=== PATIENT | female | born 1965 | race Caucasian/White ===

== ENCOUNTER 2022-03-12 14:34 | Emergency (ER) | payer OTHER, SELFPAY ==
--- NOTE | ~2022-03-12 | XR_ITS ---
EXAMINATION: XR shoulder LT min 2V DATE: 03/12/2022 15:23 INDICATION: Left shoulder injury. TECHNIQUE: 4 views of left shoulder were obtained. COMPARISON: None. FINDINGS: Bone alignment is normal. No fracture. The glenohumeral joint is normal. There is mild acro mioclavicular joint osteoarthritis. A left-sided pacer is noted. IMPRESSION: 1. Mild acromioclavicular joint osteoarthritis. Reviewed, dictated and finalized at location A.
[2022-03-12 14:42] VITALS: BP 139/76; PULSE 63; RESP 18; TEMP 36.6; O2SAT 98
--- NOTE | 2022-03-12 16:46 | ED.UPPEXIN ---
HPI - Extremity Injury (Upper) General Chief Complaint: Extremity Injury, Upper Stated Complaint: fall/ left shoulder Time Seen by Provider: 03/12/22 16:21 Source: patient Mode of arrival: ambulatory History of Present Illness HPI narrative: 56-year-old female presents today with complaints of left shoulder pain after falling at work today. Patient states she tripped landed into the wall on her side and then fell onto her knees. Patient with bruising to left armpit and right knee. Patient also states she hit her chin but no bruising apparent there. Patient denies any knee pain at current time. At time of accident patient with limited mobility to left shoulder. Related Data Allergies Allergy/AdvReac Type Severity Reaction Status Date / Time amoxicillin Allergy Other Verified 03/12/22 16:05 Review of Systems Review of Systems: CONSTITUTIONAL: Denies fever, chills, or sweats. EYES: Denies visual changes, redness, or discharge. ENT: Denies rhinorrhea, congestion, sore throat, or otalgia. CARDIOVASCULAR: Denies chest pain, palpitations, or edema. RESPIRATORY: Denies cough or dyspnea. GASTROINTESTINAL: Denies abdominal pain, nausea, vomiting, or diarrhea. GENITOURINARY: Denies dysuria or hematuria. SKIN: Denies rash or itching. MUSCULOSKELETAL: Left shoulder pain. Bruising to right knee from fall. Denies back pain, joint pain, or myalgia. NEUROLOGIC: Denies headache, numbness, dizziness, or weakness. PSYCHIATRIC: Denies anxiety or depression. Exam Narrative: GENERAL: Well-appearing, well-nourished, and in no acute distress. HEAD: Normocephalic, atraumatic. EYES: PERRLA and EOMI. ENT: Nares clear, no rhinorrhea or epistaxis. Mucous membranes moist. Oropharynx without tonsillar hypertrophy exudate or other lesions. Bilateral TMs pearly alva nonbulging NECK: Supple. No adenopathy or masses. No carotid bruits or JVD CHEST: Clear to auscultation. No respiratory distress. No wheezes rales or rhonchi HEART: Regular rate and rhythm. No murmur heard. Normal peripheral pulses. ABDOMEN: Soft, nontender, nondistended, normal active bowel sounds. EXTREMITIES: Ecchymosis to left shoulder. No deformity noted. Tenderness on palpation. Full range of motion. Bruising to right knee. Full range of motion. SKIN: Warm, dry, no rash. NEURO: No focal deficits. Alert and oriented x3. PSYCH: Normal mood and affect. Course Vital Signs Vital signs: Vital Signs Temperature 36.6 C 03/12/22 14:42 Pulse Rate 63 03/12/22 14:42 Respiratory Rate 18 03/12/22 14:42 Blood Pressure 139/76 03/12/22 14:42 Pulse Oximetry 98 03/12/22 14:42 Temperature 36.6 C 03/12/22 14:42 Pulse Rate 63 03/12/22 14:42 Respiratory Rate 18 03/12/22 14:42 Blood Pressure 139/76 03/12/22 14:42 Pulse Oximetry 98 03/12/22 14:42 MDM - Extremity Injury (Upper) MDM Narrative Medical decision making narrative: 56-year-old female HPI as noted. X-ray shows no acute fracture. Patient with full range of motion to the left shoulder and no other complaints. Suspect shoulder strain. Will discharge home plan follow-up with Ortho if things do not improve. Differential Diagnosis Differential diagnosis: Likely dislocation of shoulder and other (Proximal humerus fracture, shoulder pain, rotator cuff tear) Imaging Data Attestation: I personally reviewed and interpreted this imaging study as follows: Radiologist's impression: Impressions Shoulder X-Ray 03/12/22 15:25 IMPRESSION: 1. Mild acromioclavicular joint osteoarthritis. Discharge Plan Discharge Clinical Impression: Acute pain of left shoulder due to trauma Fall Qualifiers: Encounter type: initial encounter Qualified Code(s): W19.XXXA - Unspecified fall, initial encounter Patient Disposition: Home, Self-Care Condition: Stable Instructions: Antibiotic Form, Shoulder Pain (ED) Additional Instructions: May use Tylenol as needed for pain. Make sure to follow-up w
== END 2022-03-12 17:15 | disposition home or self-care (01) ==
LOC: ANHED 16:57
PROVIDERS: Emergency Provider Nurse Practitioner Family
DX: S49.92XA Unspecified injury of left shoulder and upper arm, initial encounter (principal); M19.012 Primary osteoarthritis, left shoulder; W01.198A Fall on same level from slipping, tripping and stumbling with subsequent striking against other object, initial encounter
CPT/HCPCS: 73030; 99283

== ENCOUNTER 2024-12-05 09:08 | Observation (INO) | payer OTHER, SELFPAY ==
[2024-12-05] VITALS (14 sets, daily range): BP systolic 92–129; BP diastolic 43–74; PULSE 68–96; RESP 17–20; TEMP 36.9–37.4; O2SAT 93–100; BMI 37.7
--- NOTE | ~2024-12-05 | US_ITS ---
EXAM: ABDOMEN ULTRASOUND HISTORY: Leukopenia COMPARISON: None FINDINGS: LIVER: The liver is unremarkable in echogenicity and size measuring 17cm in longitudinal dimension. The portal vein is patent demonstrating hepatopedal flow. GALLBLADDER: No stones are identified within the gallbladder. No gallbladder wall thickening or pericholecystic fluid. BILE DUCTS: Common bile duct measures 2.8mm. PANCREAS: Limited evaluation of the pancreas secondary to overlying bowel gas SPLEEN: The spleen is unremarkable in echogenicity and size measuring 10.7cm in longitudinal dimensio n. RIGHT KIDNEY: 10.3 cm. In length. No hydronephrosis or bulky renal calculi. LEFT KIDNEY: 9.7cm in length. No hydronephrosis or renal calculi. Multiple anechoic foci representing cysts for which no further follow-up is needed. VASCULATURE : The abdominal aorta is nonaneurysmal. The IVC is patent. IMPRESSION: Evaluation of the pancreas is limited by overlying bowel gas. No splenomegaly. Otherwise, unremarkable sonographic evaluation of the abdomen, as detailed above. Reviewed, dictated and finalized at location A. T TRIMMER IMPRESSION: Evaluation of the pancreas is limited by overlying bowel gas. No splenomegaly. Otherwise, unremarkable sonographic evaluation of the abdomen, as detailed marcelino eisenberg.
--- NOTE | ~2024-12-05 | XR_ITS ---
EXAMINATION: XR chest 1V portable DATE: 12/05/2024 10:17 INDICATION: Syncope TECHNIQUE: frontal view of the chest was obtained. COMPARISON: None FINDINGS: The lungs are clear with no focal airspace opacities, pulmonary edema, pleural effusion or pneumothor ax. The cardiomediastinal silhouette is normal. Dual lead pacemaker seen with leads projecting over t he expected locations of the right atrium and right ventricle. IMPRESSION: 1. No acute cardiopulmonary disease. Reviewed, dictated and finalized at location A. K MANAGER
--- NOTE | 2024-12-05 09:15 | ECG_ITS ---
Test Date: 2024-12-05 14:20:48 Measurements Intervals [place] Rate: 70 P: 37 MI: 140 QRS: 57 QRSD: 137 T: -16 QT: 415 QTc: 451 Interpretive Statements SINUS RHYTHM RIGHT BUNDLE BRANCH BLOCK ABNORMAL ECG Compared to ECG 12/05/2024 09:14:35 No significant changes Electronically Signed On 12-05-2024 15:40:38 [employer]INCIPAL [employer]CHIT[employer]URAL [employer]M by Francois Lenz D.O.
--- NOTE | 2024-12-05 09:29 | ED.SYNCOPE ---
HPI - Syncope General Chief Complaint: Syncope Stated Complaint: syncopal episode Time Seen by Provider: 12/05/24 09:16 History of Present Illness HPI narrative: Pt presents after having syncopal episode while at work this morning. Pt says was feeling dizzy all morning and went to work and sat down at desk and put head on desk and had a syncopal episode. Pt has history of asystole and has demand pacemakler in place which she says likely fired. Pt feels dizzy but denies CP or palpitations of SOB. 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 Related Data Home Medications ?Medication ?Instructions ?Recorded ?Confirmed ?Last Taken ?Type bupropion HCl 300 mg 24 hr tablet, 300 mg PO DAILY 12/05/24 12/05/24 12/05/24 History extended release metformin 1,000 mg tablet 1,000 mg PO DAILY 12/05/24 12/05/24 12/04/24 History Allergies Allergy/AdvReac Type Severity Reaction Status Date / Time amoxicillin Allergy Other Verified 03/12/22 16:05 Review of Systems Review of Systems: All systems reviewed & are unremarkable except as noted in HPI and below PMFSH Past Medical History Medical History Diabetes Depression Surgical History Surgical History Pacemaker Social History Social History Second hand tobacco smoke exposure: Yes Alcohol intake: never Substance use: never Do You Feel Safe in your Home?: Yes Lack of Transportation: No Lack of Food: Never True Current Housing: I Have Housing Concerned About Future Housing: No Difficulty Paying Gas/Electric Bills: No Difficulty Paying for Meds: No Currently Unemployed: No Education: Don't Know Difficulty w/ Childcare or Family Care: No Spiritual care concerns: No Exam Const: General: healthy appearing, no acute distress and alert Nutritional Appearance: well nourished Orientation/consciousness: patient oriented x3 Limitations: no limitations Eyes: Pupils: Equal, round and reactive pupils present EOM: EOMs intact bilaterally Resp: Effort & Inspection: normal respiratory effort Auscultation: clear to auscultation bilaterally Cardio: Rate: regular rate Rhythm: regular rhythm GI: GI Palp: Yes Soft to palpation Auscultation: normal bowel sounds Skin: General skin exam: normal color Rashes: no rashes Neuro: General: patient oriented x3, moves all extremities, no meningeal signs, no focal motor deficits and CN's II-XI intact bilaterally Cranial nerves: Yes Nystagmus not present Speech: normal speech Extrem: General: normal to inspection and no clubbing, cyanosis or edema Psych: Mental Status: mental status grossly normal Affect: normal affect Attitude: cooperative Course Vital Signs Vital signs: Vital Signs Temperature 99.3 F 12/05/24 09:08 Pulse Rate 68 12/05/24 09:08 Respiratory Rate 20 12/05/24 09:08 Blood Pressure 124/74 12/05/24 09:08 Pulse Oximetry 98 12/05/24 09:08 Oxygen Delivery Room Air 12/05/24 09:08 Temperature 99.0 F 12/05/24 16:13 Pulse Rate 84 12/05/24 16:14 Respiratory Rate 18 12/05/24 16:13 Blood Pressure 116/67 12/05/24 16:14 Pulse Oximetry 93 12/05/24 16:13 Oxygen Delivery Room Air 12/05/24 16:00 MDM - Syncope MDM Narrative Medical decision making narrative: Pt presents after having syncopal episode. Pt has pacemaker for asystole and this has happened before. Pt has cardilogist in [place]. will check labs and monitor and possible transfer to [place]. discussed with Dr Lisa's office and she talked with him. no beds at [facility] so admit here. Discussed with Umm and agrees to admit. Discussed Dr Hastings and she reviewed Pacer interrogation and is not concerned with cardiac etiology for syncope but will consult. Has seen her in past. Lab Data 12/05/24 09:43 12/05/24 09:43 Labs: Lab Results 12/05/24 Range/Units 09:43 WBC 2.5 L (4.5-10.0) K/mm3 RBC 3.39 L (4.2-5.4) M/mm3 Hgb 8.1 L (12.0-15.0) g/dL Hct 27.1 L (37.0-47.0) % MCV 79.9 L (80-100) fl MCH 23.9 L (26-34) pg MCHC 29.9 L (32-36) g/dl RDW 14.5 (11.5-14.5) % Plt Count 242 (150-375) k/mm3 MPV 9.1 (7.4-10.4) fl Immature Gran % (Auto) 0.4 (0-0.5) % Neut % (Auto) 67.4 (45.5-73.1) % Lymph % (Auto) 18.7 (18.3-44.2) % [place] % (Auto) 11.1 H (2.6-8.5) % Eos % (Auto) 1.6 (0-4.4) % Baso % (Auto) 0.8 (0.2-1.2) % Lymph # (Auto) 0.47 L (0.9-3.2) K/mm3 [place] # (Auto) 0.3 (0.1-0.6) K/mm3 Eos # (Auto) 0.0 (0-0.3) K/mm3 Baso # (Auto) 0.0 (0.0-0.1) K/mm3 Abs Immat Gran (auto) 0.01 (0.00-0.031) K/mm3 Absolute Neuts (auto) 1.7 (1.3-6.7) K/mm3 Absolute Nucleated RBC 0.000 (0.0-0.012) K/mm3 Nucleated RBC % 0.0 (0.0-0.2) % Platelet Estimate Adequate (Adequate) Schistocytes None seen PT 13.7 (11.1-14.7) Seconds INR 1.0 APTT 24.3 (22.3-36.8) Seconds Sodium 134 L (137-145) mmol/L Potassium 3.9 (3.4-5.0) mmol/L Chloride 101 (98-107) mmol/L Carbon Dioxide 23 (22-30) mmol/L Anion Gap 10 (4-12) mmol/L BUN 10 (7-17) mg/dL Creatinine 0.96 (0.7-1.0) mg/dL Estim Creat Clear Calc 69 ml/min Estimated GFR 59 (59 - ) Glucose 119 H (65-110) mg/dL Calcium 8.7 (8.4-10.2) mg/dL Magnesium 1.9 (1.6-2.3) mg/dL Total Bilirubin 0.5 (0.2-1.3) mg/dL AST 22 (14-36) U/L ALT 20 (6-35) U/L Alkaline Phosphatase 70 (38-126) U/L Troponin I < 0.012 (0.000-0.034) ng/mL NT-Pro-B Natriuret Pep 313 H (19.9-100) pg/mL Total Protein 6.0 L (6.3-8.2) g/dL Albumin 3.9 (3.5-5.1) g/dL Discharge Plan Discharge Clinical Impression: Syncope Patient Disposition: Still a Patient Condition: Stable
[2024-12-05 09:49] LABS: Basophils Percent Auto 0.8 % (0.2-1.2); Eosinophils Percent Auto 1.6 % (0-4.4); Hematocrit 27.1 % (37.0-47.0); Hemoglobin 8.1 g/dL (12.0-15.0); Immature Granulocyte Absolute 0.01 K/mm3 (0.00-0.031); Immature Granulocyte Percent A 0.4 % (0-0.5); Lymphocytes Absolute Auto 0.47 K/mm3 (0.9-3.2); Lymphocytes Percent Auto 18.7 % (18.3-44.2); Mean Corpuscular HGB Conc 29.9 g/dl (32-36); Mean Corpuscular Hemoglobin 23.9 pg (26-34); Mean Corpuscular Volume 79.9 fl (80-100); Mean Platelet Volume 9.1 fl (7.4-10.4); Monocytes Absolute Auto 0.3 K/mm3 (0.1-0.6); Monocytes Percent Auto 11.1 % (2.6-8.5); Neutrophils Absolute Auto 1.7 K/mm3 (1.3-6.7); Neutrophils Percent Auto 67.4 % (45.5-73.1); Platelet Count Result 242 k/mm3 (150-375); Red Blood Count 3.39 M/mm3 (4.2-5.4); Red Cell Distribution Width 14.5 % (11.5-14.5); White Blood Count 2.5 K/mm3 (4.5-10.0)
[2024-12-05 10:00] LABS: Alanine Aminotransferase 20 U/L (6-35); Albumin Level 3.9 g/dL (3.5-5.1); Alkaline Phosphatase 70 U/L (38-126); Anion Gap 10 mmol/L (4-12); Aspartate Amino Transferase 22 U/L (14-36); Bilirubin,Total 0.5 mg/dL (0.2-1.3); Blood Urea Nitrogen 10 mg/dL (7-17); Calcium 8.7 mg/dL (8.4-10.2); Carbon Dioxide 23 mmol/L (22-30); Chloride 101 mmol/L (98-107); Estimated CRCL calculation 69 ml/min; Estimated Glomerular Filt Rate 59; Glucose 119 mg/dL (65-110); Magnesium 1.9 mg/dL (1.6-2.3); Potassium 3.9 mmol/L (3.4-5.0); Sodium 134 mmol/L (137-145)
[2024-12-05 10:02] LABS: Prothrombin Time 13.7 Seconds (11.1-14.7)
[2024-12-05 10:03] LABS: Partial Thromboplastin Time 24.3 Seconds (22.3-36.8)
[2024-12-05 10:07] LABS: Platelet Estimate Adequate (Adequate)
[2024-12-05 10:08] LABS: Schistocytes None Seen
[2024-12-05 10:11] LABS: NT Pro B Type Natriuretic Pept 313 pg/mL (19.9-100); Troponin I < 0.012 ng/mL (0.000-0.034)
[2024-12-05] MEDS: SODIUM CHLORIDE 0.9% IV 1,000 ML 999 ML IV CONT (10:13)
--- NOTE | 2024-12-05 13:59 | ECG_ITS ---
Test Date: 2024-12-05 09:14:35 Measurements Intervals [place] Rate: 68 P: 27 NC: 143 QRS: 44 QRSD: 142 T: -6 QT: 420 QTc: 447 Interpretive Statements SINUS RHYTHM RIGHT BUNDLE BRANCH BLOCK BASELINE WANDER- I, II, III, V3-V6 ABNORMAL ECG No previous ECG available for comparison Electronically Signed On 12-05-2024 14:06:22 SECURITY COMPLIANCE SPECIALIST by Francois Lenz D.O.
[2024-12-05 14:38] LABS: Troponin I < 0.012 ng/mL (0.000-0.034)
--- NOTE | 2024-12-05 15:24 | ADMGEN ---
This patient, Janie Griffin, was admitted to IMU Room 202-01. Patient/family oriented to hospital policies and general routines including ID bracelet, bed and alarms, visiting hours, pain management, procedures, bathroom and other care routines, personal items, smoking policy, room service/diet, and visiting hours. Information on how to activate the Rapid Response Team has been discussed. Patient/Family are encouraged to report perceived risks to care and to ask questions if they do not understand what they are told or what they should do.
--- NOTE | 2024-12-05 16:00 | P.HP_ITS ---
H&P: HPI History of Present Illness Date/Time: 12/05/24 16:00 Chief Complaint: Syncope Narrative: 59-year-old female with S/p Medtronic dual chamber permanent pacemaker presents the hospital with complaints of syncope and dizziness. Her butt trimmer is in [place], unable to transfer patient to hospital where her butt trimmer has privileges due to no beds being available. Patient states that she has been near passing out since she was about 13. She states that is the reason why she got a pacemaker. However the symptoms have not improved with the pacemaker. She states that she does not lose consciousness however she gets extremely dizzy with the room spinning, she states that she will place her head down and relaxes much as possible but she does not lose hearing. Patient has leukopenia at 2.5, anemia at 8.1, BNP of 313. Chest x-ray with no acute cardiopulmonary process. EKG shows sinus rhythm with right bundle-branch block. Cardiology was consulted for evaluation and pacemaker interrogation. Review of Systems Review of Systems: 12 systems were reviewed and are negativ e except for as per HPI. [facility] Past Medical History Medical History (Updated 12/05/24 @ 23:29 by Umm Bains APRN) PCOS (polycystic ovarian syndrome) Depression Surgical History Surgical History Pacemaker Social History Social History Second hand tobacco smoke exposure: Yes Alcohol intake: never Substance use: never Do You Feel Safe in your Home?: Yes Lack of Transportation: No Lack of Food: Never True Current Housing: I Have Housing Concerned About Future Housing: No Difficulty Paying Gas/Electric Bills: No Difficulty Paying for Meds: No Currently Unemployed: No Education: Don't Know Difficulty w/ Childcare or Family Care: No Spiritual care concerns: No Meds Home Medications and Allergies Home Medications ?Medication ?Instructions ?Recorded ?Confirmed ?Type bupropion HCl 300 mg 24 hr tablet, 300 mg PO DAILY 12/05/24 12/05/24 History extended release metformin 1,000 mg tablet 1,000 mg PO DAILY 12/05/24 12/05/24 History Allergies Allergy/AdvReac Type Severity Reaction Status Date / Time amoxicillin Allergy Other Verified 03/12/22 16:05 Vital Signs Vital Signs - 24 hr 12/05/24 09:08 12/05/24 09:53 12/05/24 11:56 Temperature 99.3 F Pulse Rate 68 71 71 Respiratory Rate 20 19 Blood Pressure 124/74 99/49 L Pulse Oximetry 98 96 Oxygen Delivery Room Air 12/05/24 12:06 12/05/24 13:05 12/05/24 15:30 Temperature 98.5 F Pulse Rate 70 68 72 Respiratory Rate 20 20 18 Blood Pressure 117/68 129/72 122/69 Pulse Oximetry 94 94 100 Oxygen Delivery Exam Narrative: General: well appearing, appears stated age. HEENT: normocephalic, atraumatic. Mucous membranes moist. EOMI, PERRLA, bilateral sclera anicteric, no conjunctival injection. Neck supple without JVD, lymphadenopathy, or bruit. Respiratory: clear to ascultation bilaterally. No rales/rhonic/wheezes. Cardiovascular: Regular rate and rhythm, normal S1-S2 upon ascultation. No murmu rs, rubs, or clicks. PMI is nondisplaced, capillary refill less than 3 second. Abdomen: Soft, round, no pulsatile masses, nondistended and nontender. No rebound, no guarding. No CVA tenderness, no hepatosplenomegaly. Bowel sounds present to all four quadrants. No high pitch or tinkling sounds, resonant to percussion. Extremities: No cyanosis, clubbing, or edema present. Pulses are palpable 2/2. Active ROM to all four extremities. Neuro: Alert and orientated x 4. PERRLA. Cranial nerves 2-12 intact without focal deficit. Skin: Warm, dry, and intact, without rash, erythema, or lesion. Psych: pleasant, cooperative, normal speech, normal affect, no hallucinations, no dysarthia H&P: Results Labs Labs: Short CBC 12/05/24 Range/Units 09:43 WBC 2.5 L (4.5-10.0) K/mm3 Hgb 8.1 L (12.0-15.0) g/dL Hct 27.1 L (37.0-47.0) % Plt Count 242 (150-375) k/mm3 [facility] 12/05/24 09:43 Sodium 134 L Potassium 3.9 Chloride 101 Carbon Dioxide 23 BUN 10 Creatinine 0.96 Glucose 119 H Calcium 8.7 Cardiac Enzymes 12/05/24 12/05/24 Range/Units 09:43 14:12 Troponin I < 0.012 < 0.012 (0.000-0.034) ng/mL Liver Function 12/05/24 Range/Units 09:43 Total Bilirubin 0.5 (0.2-1.3) mg/dL AST 22 (14-36) U/L ALT 20 (6-35) U/L Alkaline Phosphatase 70 (38-126) U/L Albumin 3.9 (3.5-5.1) g/dL Assessment and Plan Assessment and plan (1) Near syncope: Code(s): R55 - Syncope and collapse Status: Acute Assessment and Plan: Syncopal workup life skills educator Orthostatic vital signs Echocardiogram If no cause of episodes sound patient would benefit from seeing ENT for possible inner ear disease (2) Pacemaker complications: Code(s): T82.9XXA - Unspecified complication of cardiac and vascular prosthetic device, implant and graft, initial encounter Status: Acute Assessment and Plan: Cardiology consulted Cardiology reviewed pacemaker interrogation of nonsustained V-tach and decided that it was 6 beats of SVT which patient has had past. patient interrogation was otherwise normal Orthostatic vital signs Anemia workup Echocardiogram pending Patient to follow up with her primary butt trimmer after hospital discharge (Dr. Lisa with [facility]). (3) Iron deficiency anemia: Code(s): D50.9 - Iron deficiency anemia, unspecified Status: Acute Assessment and Plan: Patient states she recently had blood work and her provider did not mention showed anemia IV iron followed by oral (4) Cough: Code(s): R05.9 - Cough, unspecified Status: Acute Assessment and Plan: COVID, flu, RSV panel negative (5) Depression: Code(s): F32.A - Depression, unspecified Status: Acute Assessment and Plan: Continue home med (6) PCOS (polycystic ovarian syndrome): Code(s): E28.2 - Polycystic ovarian syndrome Status: Acute Quality VTE Prophylaxis VTE prophylaxis: mechanical ordered If No VTE Prophylaxis Answer both mechanical and pharmacologic: Reason no pharmacologic proph: low risk/not indicated Hospitalist MIPS Advance Care Plan I have confirmed that the patient's Advanced Care Plan is present, code status is documented, or surrogate decision maker is listed in patient medical record.: Yes Medication Reconciliation I have utilized all available resources to obtain, update and review the patients current medications (includes all prescriptions, OTC, herbals, cannabis, and nutritional supplements).: Yes
--- NOTE | 2024-12-05 16:05 | P.CONCA_ITS ---
Assessment and Plan Assessment and plan (1) Near syncope: Code(s): R55 - Syncope and collapse Status: Acute Plan 1. Near syncope 2. Cough 3. Anemia 4. S/p Medtronic dual chamber permanent pacemaker PLAN: -Device interrogation unremarkable. -Check orthostatic vital signs. -Given cough and recent exposure to Influenza, recommend to check for Influenza/COVID/RSV. -Hgb is 8.1. No previous baseline for comparison, unclear if acute or chronic. Workup and management as per Hospitalist. -Will obtain echocardiogram as we do not have one in our system. If echocardiogram without significant abnormality, then no further cardiac workup anticipated. -Patient to follow up with her primary logistics tech after hospital discharge (Dr. Lisa with [facility]). History of Present Illness History of Present Illness Consult date/time: 12/05/24 16:05 Requesting physician: Radha Noland III, DO Consult reason: Other (Syncope) Reason For Visit: syncope Narrative: Janie is a 59 year old female with Medtronic dual chamber permanent pacemaker who presented after a near syncopal event. Janie states she started coughing yesterday. Woke up this morning around 4AM, felt dizzy. Went to work where she continued to feel dizzy. Was sitting at work and around 9AM, she slumped over and became non-responsive. She did not lose consciousness -- states she could hear other people talking to her during this event. No other associated symptoms. In the ED, EKG shows sinus rhythm, right bundle branch block. Device was interrogated which shows normal functioning pacemaker. Had 6 episodes marked as NSVT, however, upon personal interpretation of the strips, these were very brief episodes of SVT (which patient has had before upon review of her old device interrogations); last episode was /. Overall, device interrogation unremarkable. Patient admitted for further workup. Workup shows Hgb of 8.1. Troponins are negative x 2. NT pro BNP elevated at 313. CXR negative. Review of Systems 2 Review of Systems: All systems reviewed & are unremarkable except as noted in HPI and below (HPI) [facility] Social History Social History Alcohol intake: never Substance use: never Do You Feel Safe in your Home?: Yes Lack of Transportation: No Lack of Food: Never True Current Housing: I Have Housing Concerned About Future Housing: No Difficulty Paying Gas/Electric Bills: No Difficulty Paying for Meds: No Currently Unemployed: No Education: Don't Know Difficulty w/ Childcare or Family Care: No Spiritual care concerns: No Meds Home Medications and Allergies Allergies Allergy/AdvReac Type Severity Reaction Status Date / Time amoxicillin Allergy Other Verified 03/12/22 16:05 Vital Signs Vital Signs - 24 hr 12/05/24 09:08 12/05/24 09:53 12/05/24 11:56 Temperature 37.4 C Pulse Rate 68 71 71 Respiratory Rate 20 19 Blood Pressure 124/74 99/49 L Pulse Oximetry 98 96 Oxygen Delivery Room Air 12/05/24 12:06 12/05/24 13:05 12/05/24 15:30 Temperature 36.9 C Pulse Rate 70 68 72 Respiratory Rate 20 20 18 Blood Pressure 117/68 129/72 122/69 Pulse Oximetry 94 94 100 Oxygen Delivery Exam 2 Const: General: no acute distress HENMT: Mouth: Yes moist mucous membranes Eyes: General: appearance normal, both eyes and all related structures S clera: sclerae normal Resp: Effort & Inspection: normal respiratory effort Auscultation: clear to auscultation bilaterally Cardio: Rate: regular rate Rhythm: regular rhythm Heart sounds: no murmurs Skin: General skin exam: normal color Neuro: Speech: normal speech Psych: Mental Status: mental status grossly normal Affect: normal affect Results Labs and Meds 12/05/24 09:43 12/05/24 09:43 Lab results: Cardiac Enzymes 12/05/24 12/05/24 Range/Units 09:43 14:12 AST 22 (14-36) U/L Troponin I < 0.012 < 0.012 (0.000-0.034) ng/mL Coagulation 12/05/24 Range/Units 09:43 PT 13.7 (11.1-14.7) Seconds APTT 24.3 (22.3-36.8) Seconds CBC 12/05/24 Range/Units 09:43 WBC 2.5 L (4.5-10.0) K/mm3 RBC 3.39 L (4.2-5.4) M/mm3 Hgb 8.1 L (12.0-15.0) g/dL Hct 27.1 L (37.0-47.0) % Plt Count 242 (150-375) k/mm3 Lymph # (Auto) 0.47 L (0.9-3.2) K/mm3 [place] # (Auto) 0.3 (0.1-0.6) K/mm3 Eos # (Auto) 0.0 (0-0.3) K/mm3 Baso # (Auto) 0.0 (0.0-0.1) K/mm3 Comprehensive Metabolic Panel 12/05/24 Range/Units 09:43 Sodium 134 L (137-145) mmol/L Potassium 3.9 (3.4-5.0) mmol/L Chloride 101 (98-107) mmol/L Carbon Dioxide 23 (22-30) mmol/L BUN 10 (7-17) mg/dL Creatinine 0.96 (0.7-1.0) mg/dL Glucose 119 H (65-110) mg/dL Calcium 8.7 (8.4-10.2) mg/dL AST 22 (14-36) U/L ALT 20 (6-35) U/L Alkaline Phosphatase 70 (38-126) U/L Total Protein 6.0 L (6.3-8.2) g/dL Albumin 3.9 (3.5-5.1) g/dL Intake and Output 12/05/24 12/05/24 12/05/24 07:59 15:59 23:59 Intake Total 1000 Balance 1000 Intake: IV 1000 Sodium Chloride 0.9% IV 1,000 1000 ml @ 999 mls/hr IV CONT .Q1H1M STA Rx#:[id number] Patient Weight 12/05/24 23:59 Weight 109.2 kg
[2024-12-05 16:57] LABS: Immature Reticulocyte Fraction 14.4 % (3.0-15.9); Reticulocyte Hemoglobin Conten 22.9 pg (28.2-36.6); Reticulocyte Percent 1.22 % (0.7-4.3); Reticulocytes Absolute 0.04 10^6/uL (0.02-0.10)
[2024-12-05 17:01] LABS: Influenza A QL RT-PCR Negative (Negative); Influenza B QL RT-PCR Negative (Negative); RSV RNA, RT-PCR Negative (Negative); SARS-CoV-2 RNA PCR Negative (Negative)
[2024-12-05 17:08] LABS: Prothrombin Time 13.8 Seconds (11.1-14.7)
[2024-12-05 17:09] LABS: Partial Thromboplastin Time 25.6 Seconds (22.3-36.8)
[2024-12-05 17:27] LABS: Magnesium 2.1 mg/dL (1.6-2.3); Phosphorus 3.6 mg/dL (2.5-4.5)
[2024-12-05 17:34] LABS: Transferrin 294 mg/dL (206-381)
[2024-12-05 17:39] LABS: Iron 32 ug/dL (37-170)
[2024-12-05 17:48] LABS: Percent Iron Saturation 8 % (20-50)
[2024-12-05 18:09] LABS: Thyroid Stimulating Hormone Reflex 0.494 uIU/mL (0.465-4.68)
[2024-12-05 18:13] LABS: Ferritin 6.32 ng/mL (11.1-264)
[2024-12-05 18:35] LABS: Folic Acid > 20.0 ng/mL (2.76->20)
[2024-12-05 18:45] LABS: Free T4 Free Thyroxine 1.05 ng/dL (0.78-2.19)
[2024-12-05 19:28] LABS: Add Urine Microscopic? NO; Appearance Urine Clear (Clear); Bilirubin Urine Negative (Negative); Blood Urine Negative (Negative); Color Urine Yellow (Yellow); Glucose Urine UA Negative (Negative); Ketones Urine Negative (Negative); Leukocyte Esterase Ur Negative LEU/UL (Negative); Nitrate Urine Negative (Negative); Protein Urine Negative (Negative); Specific Grav Ur 1.006 (1.001-1.035); Urobilinogen Urine 0.2 mg/dL (<2.0); pH Urine 6.5 (5.0-9.0)
[2024-12-05 20:55] LABS: Troponin I < 0.012 ng/mL (0.000-0.034)
[2024-12-05] MEDS: IRON SUCROSE COMPLEX 200 MG in SODIUM CHLORIDE 0.9% IV 100 ML 220 MG IVPB (22:27)
[2024-12-06] VITALS (10 sets, daily range): BP systolic 95–109; BP diastolic 48–66; PULSE 65–77; RESP 16–20; TEMP 36.7–37.2; O2SAT 92–96
--- NOTE | 2024-12-06 | ECHO_ITS ---
Patient Info Name: Janie Ventura Elias Age: 59 years : 1965 Gender: Female Ht: 67 in Wt: 244 lbs BSA: 2.34 m2 HR: 80 bpm BP: 107 / 59 mmHg Heart Rhythm: Sinus Rhythm Technical Quality: Good Exam Date: 12/06/2024 9:54 AM Exam Location: Echo Lab Exam Room: [facility] Patient Status: Inpatient Admit Date: 12/05/2024 Staff Ordering Physician: Antonio Hastings MD (franny/abrahan) Meat Trimmer: Rose Sharma RDCS Attending Provider: Marie Wesley MD Referring Physician: Venkata CORNEJO; Exam Type: CA echo doppler color flow Study Info Indications - A fib Complete two-dimensional, color flow and Doppler transthoracic echocardiogram is performed. Summary 1. Left ventricular chamber dimension is normal. 2. Left ventricular systolic function is normal, estimated at 60-65%. 3. The left ventricular diastolic function is grade I diastolic dysfunction. 4. Right ventricular systolic function is normal. 5. Left atrial chamber dimension is mildly enlarged. 6. There is mild mitral valve regurgitation. 7. There is mild tricuspid valve regurgitation. Left Ventricle Left ventricular chamber dimension is normal. Left ventricular systolic function is normal, estimated at 60-65%. There is no increased left ventricular wall thickness. The left ventricular diastolic function is grade I diastolic dysfunction. Right Ventricle Linear artifact in right ventricle suggestive of catheter(s), pacemaker lead(s), or ICD lead(s). Right ventricular chamber dimension is normal. Right ventricular systolic function is normal. Left Atria Left atrial chamber dimension is mildly enlarged. Right Atria Linear artifact in the right atrium suggestive of catheter(s), pacemaker lead(s), or ICD lead(s). Right atrial chamber dimension is normal. Atrial Septum Intact interatrial septum visualized by color flow imaging. Aortic Valve The aortic valve is trileaflet. There is no aortic valve stenosis. There is no aortic valve regurgitation. Pulmonic Valve The pulmonic valve is not well visualized. There is no pulmonic regurgitation. Mitral Valve There is mild mitral valve regurgitation. Tricuspid Valve There is mild tricuspid valve regurgitation. Pericardium/Pleural There is no pericardial effusion. Inferior Vena Cava Normal inferior vena cava with >50% collapse upon inspiration consistent with normal right atrial pressure, 3 mmHg. Aorta The aortic root size at the sinus of Valsalva is normal. Left Ventricular Outflow Tract Name Value Normal LVOT 2D LVOT Diameter 2.3 cm LVOT Doppler LVOT Peak Gradient 7 mmHg LVOT Mean Gradient 4 mmHg LVOT VTI 29 cm LVOT VTI/AV VTI Ratio 0.8 LVOT Stroke Volume 120 ml LVOT CO 6.6 l/min LVOT CI 2.8 l/min/m2 Pulmonic Valve Name Value Normal PV Doppler PV Peak Gradient 4 mmHg PV Regurgitation Doppler DC Peak End Diastolic Velocity 103 cm/s Mitral Valve Name Value Normal MV Doppler MV Peak Gradient 2 mmHg MV Mean Gradient 1 mmHg MV Decel [place] 226 cm/s2 MV PHT 95 ms MV Area (PHT) 2.3 cm2 4.0-5.0 MV Area (Cont Eq VTI) 4.4 cm2 MV Diastolic Function MV E Peak Velocity 74 cm/s MV A Peak Velocity 90 cm/s MV E/A 0.8 MV Decel Time 326 ms MV Annular TDI MV E/e' (Septal) 5.7 <=8.0 MV E/e' (Lateral) 5.9 <=8.0 MV E/e' (Average) 5.8 Tricuspid Valve Name Value Normal TV Regurgitation Doppler TR Peak Velocity 257 cm/s TR Peak Gradient 26 mmHg Estimated PAP/RSVP RA Pressure 3 mmHg <=5 PA Systolic Pressure 29 mmHg <36 RV Systolic Pressure 29 mmHg <36 Aortic Valve Name Value Normal AV Doppler AV Peak Velocity 177 cm/s AV Peak Gradient 12 mmHg AV Mean Gradient 7 mmHg AV VTI 37 cm AV Area (Cont Eq VTI) 3.2 cm2 >=3.0 AV Area (Cont Eq Dirk) 3.1 cm2 AV Regurgitation 2D LVOT Area 4.1 cm2 Ventricles Name Value Normal LV Dimensions 2D/MM IVS Diastolic Thickness (2D) 0.8 cm 0.6-1.0 LVID Diastole (2D) 5.6 cm 3.8-5.2 LVID Diastole (MM) 6.0 cm 3.8-5.2 LVIW Diastolic Thickness (2D) 0.8 cm 0.6-0.9 LVID Systole (2D) 4.1 cm 2.2-3.5 LVID Systole (MM) 3.7 cm 2.2-3.5 LVOT Diameter 2.3 cm LV Mass (2D Cubed) 169.98 g 67.00-162.00 LV Mass Index (2D Cubed) 73 g/m2 43-95 Relative Wall Thickness (2D) 0.29 LV Fractional Shortening/Ejection Fraction 2D/MM LV Fractional Shortening (2D) 27 % 27-45 LV Fractional Shortening (MM) 38 % 27-45 LV EF (MM Teicholz) 67 % 54-74 LV EF (2D Teicholz) 52 % 54-74 LV Diastolic Volume (4C MOD) 180 ml LV EF (4C MOD) 61 % LV Diastolic Volume (2C MOD) 165 ml LV EF (2C MOD) 62 % LV Diastolic Volume (BP MOD) 181 ml 46-106 LV Diastolic Volume Index (BP MOD) 77 ml/m2 29-61 LV Systolic Volume (BP MOD) 67 ml 14-42 LV Systolic Volume Index (BP MOD) 29 ml/m2 8-24 LV EF (BP MOD) 63 % 54-74 LV Diastolic Length (4C) 9.5 cm LV Systolic Length (4C) 7.5 cm LV Stroke Volume (4C MOD) 109 ml Atria Name Value Normal LA Dimensions LA Volume (4C A-L) 74 ml LA Volume (BP A-L) 82 ml RA Dimensions RA Area (4C) 16.9 cm2 <=18.0 Report Signatures
[2024-12-06 04:41] LABS: Basophils Percent Auto 0.5 % (0.2-1.2); Eosinophils Percent Auto 1.5 % (0-4.4); Hematocrit 26.2 % (37.0-47.0); Hemoglobin 7.7 g/dL (12.0-15.0); Lymphocytes Absolute Auto 0.84 K/mm3 (0.9-3.2); Lymphocytes Percent Auto 41.4 % (18.3-44.2); Mean Corpuscular HGB Conc 29.4 g/dl (32-36); Mean Corpuscular Hemoglobin 23.5 pg (26-34); Mean Corpuscular Volume 80.1 fl (80-100); Mean Platelet Volume 9.2 fl (7.4-10.4); Monocytes Absolute Auto 0.3 K/mm3 (0.1-0.6); Monocytes Percent Auto 12.8 % (2.6-8.5); Neutrophils Absolute Auto 0.9 K/mm3 (1.3-6.7); Neutrophils Percent Auto 43.8 % (45.5-73.1); Platelet Count Result 225 k/mm3 (150-375); Red Blood Count 3.27 M/mm3 (4.2-5.4); Red Cell Distribution Width 14.5 % (11.5-14.5)
[2024-12-06 04:57] LABS: Anion Gap 9 mmol/L (4-12); Blood Urea Nitrogen 9 mg/dL (7-17); Calcium 8.5 mg/dL (8.4-10.2); Carbon Dioxide 25 mmol/L (22-30); Chloride 105 mmol/L (98-107); Estimated CRCL calculation 67 ml/min; Estimated Glomerular Filt Rate 56; Glucose 88 mg/dL (65-110); Potassium 3.8 mmol/L (3.4-5.0); Sodium 139 mmol/L (137-145)
[2024-12-06 05:51] LABS: Anisocytosis 1+; Hypochromasia 1+; Platelet Estimate Adequate (Adequate); Schistocytes None Seen
[2024-12-06] MEDS: POLYSACCHARIDE IRON COMPLEX 150 MG CAPSULE PO ×2 (08:43→17:20)
[2024-12-06] MEDS: buPROPion HCL XL (24 HR) 150 MG TABCR 300 MG PO (08:43)
[2024-12-06] MEDS: metFORMIN HCL 500 MG TABLET 1000 MG PO (08:43)
[2024-12-06 09:00] LABS: Lactate Dehydrogenase 193 U/L (120-246)
--- NOTE | 2024-12-06 12:12 | P.PNIM_ITS ---
Progress Note: A&P Assessment and Plan (1) Near syncope: Code(s): R55 - Syncope and collapse Status: Acute Assessment and Plan: Syncopal workup color television console monitor Orthostatic vital signs Echocardiogram pending Pacemaker interrogation with no significant arrhythmias. Check orthostatic vitals (2) Pacemaker complications: Code(s): T82.9XXA - Unspecified complication of cardiac and vascular prosthetic device, implant and graft, initial encounter Status: Acute Assessment and Plan: Cardiology consulted Cardiology reviewed pacemaker interrogation of nonsustained V-tach and decided that it was 6 beats of SVT which patient has had past. patient interrogation was otherwise normal Orthostatic vital signs Anemia workup Echocardiogram pending Patient to follow up with her primary core cleaner after hospital discharge (Dr. Lisa with [facility]). (3) Iron deficiency anemia: Code(s): D50.9 - Iron deficiency anemia, unspecified Status: Acute Assessment and Plan: Patient states she recently had blood work and her provider did not mention showed anemia IV iron followed by oral ferritin is low with low iron saturation Family history of hematologic malignancy in her sister. Also has leukopenia. Could be related to iron deficiency However consult Heme-Onc for further evaluation. May need outpatient evaluation Could not find any prior cbc (4) Cough: Code(s): R05.9 - Cough, unspecified Status: Acute Assessment and Plan: COVID, flu, RSV panel negative (5) Depression: Code(s): F32.A - Depression, unspecified Status: Acute Assessment and Plan: Continue home med (6) PCOS (polycystic ovarian syndrome): Code(s): E28.2 - Polycystic ovarian syndrome Status: Acute Subjective Date/time seen: 12/06/24 12:12 Interval history: Feels better. Blood pressure borderline. Having some upper respiratory symptoms. Labs in the past not available particularly cbc check lab [facility] and previous hospital. Denies any abdominal pain nausea vomiting. Review of Systems Review of Systems: All systems reviewed & are unremarkable except as noted in HPI and below Exam Narrative: General: well appearing, appears stated age. HEENT: normocephalic, atraumatic. Mucous membranes moist. Respiratory: clear to ascultation bilaterally. No rales/rhonic/wheezes. Cardiovascular: Regular rate and rhythm, normal S1-S2 upon ascultation. No murmurs, rubs, or clicks. PMI is nondisplaced, capillary refill less than [address] Abdomen: Soft, round, no pulsatile masses, nondistended and nontender. Extremities: No cyanosis, clubbing, or edema present. Pulses are palpable 2/2. Active ROM to all four extremities. Neuro: Alert and orientated x 4. PERRLA. Cranial nerves 2-12 intact without focal deficit. Skin: Warm, dry, and intact, without rash, erythema, or lesion. Psych: pleasant, cooperative, normal speech, normal affect, no hallucinations, no dysarthia Objective Data Vital Signs Vital Signs: Vital Signs - 24 hr 12/05/24 13:05 12/05/24 15:30 12/05/24 16:00 Temperature 98.5 F Pulse Rate 68 72 Respiratory Rate 20 18 Blood Pressure 129/72 122/69 Pulse Oximetry 94 100 93 Oxygen Delivery Room Air 12/05/24 16:00 12/05/24 16:13 12/05/24 16:13 Temperature 99.0 F 99.0 F Pulse Rate 71 73 73 Respiratory Rate 18 18 Blood Pressure 118/67 118/67 Pulse Oximetry 93 93 Oxygen Delivery 12/05/24 16:14 12/05/24 16:14 12/05/24 18:00 Temperature Pulse Rate 96 84 73 Respiratory Rate Blood Pressure 125/73 116/67 Pulse Oximetry Oxygen Delivery 12/05/24 19:39 12/05/24 20:00 12/05/24 20:00 Temperature 98.8 F Pulse Rate 82 77 Respiratory Rate 17 Blood Pressure 109/48 L Pulse Oximetry 95 Oxygen Delivery Room Air 12/05/24 22:00 12/05/24 23:53 12/06/24 00:00 Temperature 99.0 F Pulse Rate 70 72 Respiratory Rate 18 Blood Pressure 92/43 L Pulse Oximetry 95 Oxygen Delivery Room Air 12/06/24 00:00 12/06/24 02:00 12/06/24 04:00 Temperature Pulse Rate 73 73 Respiratory Rate Blood Pressure Pulse Oximetry Oxygen Delivery Room Air 12/06/24 04:00 12/06/24 04:00 12/06/24 06:00 Temperature 98.8 F Pulse Rate 65 67 71 Respiratory Rate 18 Blood Pressure 95/60 L Pulse Oximetry 92 Oxygen Delivery 12/06/24 07:59 12/06/24 10:00 12/06/24 11:22 Temperature 98.5 F 98.1 F Pulse Rate 69 68 67 Respiratory Rate 20 18 Blood Pressure 102/53 L 105/48 L Pulse Oximetry 96 93 Oxygen Delivery 12/06/24 12:00 Temperature Pulse Rate 77 Respiratory Rate Blood Pressure Pulse Oximetry Oxygen Delivery Intake/Output Intake/Output: Intake & Output 12/03/24 12/04/24 12/05/24 12/06/24 23:59 23:59 23:59 23:59 Intake Total 1470 240 Output Total 1001 1000 Balance 469 -760 Meds/Results Medications: Active Medications Generic Name Dose Route Start Last Admin Trade Name Freq PRN Reason Stop Dose Admin Acetaminophen 650 mg 12/05/24 16:30 Acetaminophen 325 Mg Tablet PO Q4H PRN Mild Pain (1-3) or Fever Bupropion HCl 300 mg 12/06/24 09:00 12/06/24 08:43 Bupropion Hcl Xl (24 Hr) 150 Mg Tabcr PO 300 mg DAILY VELMA Administration Fluticasone Propionate 1 spray 12/06/24 09:00 12/06/24 11:06 Fluticasone Propionate 0.05% Na Spr 16 Gm Btl (*Bkc) NASAL Not Given Q12HR VELMA Metformin HCl 1,000 mg 12/06/24 09:00 12/06/24 08:43 Metformin Hcl 500 Mg Tablet PO 1,000 mg DAILY VELMA Administration Perflutren Lipid Microsphere 0 ml 12/05/24 16:14 Perflutren Lipid Microspheres 1.5 Ml Vial Diluted To 10 Ml Total Volume IV PUSH 12/08/24 16:14 ONCE PRN adequate visualization Protocol Polysaccharide Iron Complex 150 mg 12/06/24 08:00 12/06/24 08:43 Polysaccharide Iron Complex 150 Mg Capsule PO 12/07/24 09:00 150 mg BIDWM VELMA Administration Senna/Docusate Sodium 1 tab 12/06/24 21:00 Senna/Docusate Sodium Tablet PO HS [facility] Radiology Results: ITS Impressions Chest X-Ray 12/05/24 10:19 IMPRESSION: 1. No acute cardiopulmonary disease. Labs Labs: Laboratory Results - last 24 hr 12/05/24 12/05/24 12/05/24 14:12 16:20 16:48 WBC RBC Hgb Hct MCV MCH MCHC RDW Plt Count MPV Immature Gran % (Auto) Neut % (Auto) Lymph % (Auto) [place] % (Auto) Eos % (Auto) Baso % (Auto) Lymph # (Auto) [place] # (Auto) Eos # (Auto) Baso # (Auto) Abs Immat Gran (auto) Absolute Neuts (auto) Absolute Nucleated RBC Nucleated RBC % Platelet Estimate Hypochromasia Anisocytosis Schistocytes Absolute Retic 0.04 Percent Retic 1.22 Immature Retic Fraction 14.4 Retic Hgb Content 22.9 L PT 13.8 INR 1.0 APTT 25.6 Sodium Potassium Chloride Carbon Dioxide Anion Gap BUN Creatinine Estim Creat Clear Calc Estimated GFR Glucose Calcium Phosphorus 3.6 Magnesium 2.1 Iron 32 L TIBC 391 % Saturation 8 L Transferrin 294 Ferritin 6.32 L Lactate Dehydrogenase Troponin I < 0.012 Vitamin B12 917.0 Folate > 20.0 H TSH (Reflex) 0.494 Free T4 1.05 Urine Color Urine Appearance Urine pH Ur Specific [place] Urine Protein Urine Glucose (UA) Urine Ketones Ur Blood (Man) Urine Nitrate Urine Bilirubin Urine Urobilinogen Ur Leukocyte Esterase Influenza A (RT-PCR) Negative Influenza B (RT-PCR) Negative RSV (RT-PCR) Negative SARS-CoV-2 RNA (RT-PCR) Negative Blood Type O Positive Antibody Screen Negative 12/05/24 12/05/24 12/06/24 19:20 20:14 03:45 WBC 2.0 L RBC 3.27 L Hgb 7.7 L Hct 26.2 L MCV 80.1 MCH 23.5 L MCHC 29.4 L RDW 14.5 Plt Count 225 MPV 9.2 Immature Gran % (Auto) 0.0 Neut % (Auto) 43.8 L Lymph % (Auto) 41.4 [place] % (Auto) 12.8 H Eos % (Auto) 1.5 Baso % (Auto) 0.5 Lymph # (Auto) 0.84 L [place] # (Auto) 0.3 Eos # (Auto) 0.0 Baso # (Auto) 0.0 Abs Immat Gran (auto) 0.00 Absolute Neuts (auto) 0.9 L Absolute Nucleated RBC 0.000 Nucleated RBC % 0.0 Platelet Estimate Adequate Hypochromasia 1+ Anisocytosis 1+ Schistocytes None seen Absolute Retic Percent Retic Immature Retic Fraction Retic Hgb Content PT INR APTT Sodium 139 Potassium 3.8 Chloride 105 Carbon Dioxide 25 Anion Gap 9 BUN 9 Creatinine 1.01 H Estim Creat Clear Calc 67 Estimated GFR 56 L Glucose 88 Calcium 8.5 Phosphorus Magnesium Iron TIBC % Saturation Transferrin Ferritin Lactate Dehydrogenase 193 Troponin I < 0.012 Vitamin B12 Folate TSH (Reflex) Free T4 Urine Color Yellow Urine Appearance Clear Urine pH 6.5 Ur Specific [place] 1.006 Urine Protein Negative Urine Glucose (UA) Negative Urine Ketones Negative Ur Blood (Man) Negative Urine Nitrate Negative Urine Bilirubin Negative Urine Urobilinogen 0.2 Ur Leukocyte Esterase Negative Influenza A (RT-PCR) Influenza B (RT-PCR) RSV (RT-PCR) SARS-CoV-2 RNA (RT-PCR) Blood Type Antibody Screen
--- NOTE | 2024-12-06 18:46 | WPDONCCN ---
Assessment and Plan Assessment and plan (1) Pancytopenia: Code(s): D61.818 - Other pancytopenia Status: Acute Assessment and Plan: Anemia and leukopenia. Patient is a pleasant 59-year-old female with history of pacemaker placement along with polycystic ovarian syndrome. She came into the hospital with lightheadedness and dizziness and labs showed WBC count of 2.5 with hemoglobin of 8.1. Her platelet count were normal. Other labs showed iron level 32 with iron saturation of 8%. Ferritin was 6.3. She denies any complaint of bleeding. Patient had uterine ablation done in the past. Her last colonoscopy was 3-4 months ago when came back unremarkable. I will continue with the IV iron infusion and will start iron 65 mg twice a day with vitamin-C 500 mg daily on discharge. Based on her response to the therapy will decide about further GI evaluation including endoscopy and capsule enteroscopy as an outpatient. I will also order abdominal ultrasound flow cytometric analysis for leukemia and JUAN due to low WBC count. I have answered all the questions to patient's satisfaction. Follow up as an outpatient. HPI Data of Consult Date/Time: 12/06/24 18:46 Requesting Physician: Marie Wesley MD Primary Care Provider: UNKNOWN,DOCTOR Consult Narrative Narrative: Janie Griffin is a 59 year old female with history of polycystic ovarian syndrome and status post pacemaker placement came into the hospital with complain of lightheadedness and dizziness and syncopal episode. She denies any bleeding including melena hematochezia. Denies any diarrhea and constipation. She denies being a vegetarian. She eats red meat infrequently. She denies any previous stomach surgery. Labs Showed hemoglobin of 8.1. WBC count was 2.5. Iron studies showed iron deficiency anemia. She denies any autoimmune complaints. Patient had colonoscopy done 3-4 months ago came back unremarkable. She never received blood transfusion in the past. Denies any other complaint. Review of Systems Review of Systems: Review of system as per HPI otherwise negative [facility] Past Medical History Medical History (Updated 12/05/24 @ 23:29 by Umm Bains APRN) PCOS (polycystic ovarian syndrome) Depression Surgical History Surgical History Pacemaker Social History Social History Second hand tobacco smoke exposure: Yes Alcohol intake: never Substance use: never Do You Feel Safe in your Home?: Yes Lack of Transportation: No Lack of Food: Never True Current Housing: I Have Housing Concerned About Future Housing: No Difficulty Paying Gas/Electric Bills: No Difficulty Paying for Meds: No Currently Unemployed: No Education: Don't Know Difficulty w/ Childcare or Family Care: No Spiritual care concerns: No Meds Home Medications and Allergies Home Medications ?Medication ?Instructions ?Recorded ?Confirmed ?Type bupropion HCl 300 mg 24 hr tablet, 300 mg PO DAILY 12/05/24 12/05/24 History extended release metformin 1,000 mg tablet 1,000 mg PO DAILY 12/05/24 12/05/24 History Allergies Allergy/AdvReac Type Severity Reaction Status Date / Time amoxicillin Allergy Other Verified 03/12/22 16:05 Vital Signs Vital Signs - 24 hr 12/05/24 19:39 12/05/24 20:00 12/05/24 20:00 Temperature 37.1 C Pulse Rate 82 77 Respiratory Rate 17 Blood Pressure 109/48 L Pulse Oximetry 95 Oxygen Delivery Room Air 12/05/24 22:00 12/05/24 23:53 12/06/24 00:00 Temperature 37.2 C Pulse Rate 70 72 Respiratory Rate 18 Blood Pressure 92/43 L Pulse Oximetry 95 Oxygen Delivery Room Air 12/06/24 00:00 12/06/24 02:00 12/06/24 04:00 Temperature Pulse Rate 73 73 Respiratory Rate Blood Pressure Pulse Oximetry Oxygen Delivery Room Air 12/06/24 04:00 12/06/24 04:00 12/06/24 06:00 Temperature 37.1 C Pulse Rate 65 67 71 Respiratory Rate 18 Blood Pressure 95/60 L Pulse Oximetry 92 Oxygen Delivery 12/06/24 07:59 12/06/24 10:00 12/06/24 11:22 Temperature 36.9 C 36.7 C Pulse Rate 69 68 67 Respiratory Rate 20 18 Blood Pressure 102/53 L 105/48 L Pulse Oximetry 96 93 Oxygen Delivery 12/06/24 12:00 12/06/24 15:53 Temperature 37.2 C Pulse Rate 77 72 Respiratory Rate 18 Blood Pressure 108/61 Pulse Oximetry 95 Oxygen Delivery Exam Narrative: Lungs are clear to auscultation bilaterally Cardiovascular regular rate rhythm no murmurs Abdomen soft nontender nondistended Extremities no edema Results Labs 12/06/24 03:45 12/06/24 03:45 Labs: Short CBC 12/06/24 Range/Units 03:45 WBC 2.0 L (4.5-10.0) K/mm3 Hgb 7.7 L (12.0-15.0) g/dL Hct 26.2 L (37.0-47.0) % Plt Count 225 (150-375) k/mm3 BMP 12/06/24 03:45 Sodium 139 Potassium 3.8 Chloride 105 Carbon Dioxide 25 BUN 9 Creatinine 1.01 H Glucose 88 Calcium 8.5 Cardiac Enzymes 12/05/24 Range/Units 20:14 Troponin I < 0.012 (0.000-0.034) ng/mL Urine 12/05/24 Range/Units 19:20 Urine Color Yellow (Yellow) Urine Appearance Clear (Clear) Urine pH 6.5 (5.0-9.0) Ur Specific [place] 1.006 (1.001-1.035) Urine Protein Negative (Negative) mg/dL Urine Glucose (UA) Negative (Negative) mg/dL
[2024-12-06] MEDS: SENNA/DOCUSATE SODIUM TABLET 1 TAB PO (20:36)
[2024-12-06] MEDS: FLUTICASONE PROPIONATE 0.05% NA SPR 16 GM BTL (*BKC) 1 SPRAY NASAL (20:37)
[2024-12-07] VITALS (9 sets, daily range): BP systolic 92–114; BP diastolic 50–89; PULSE 62–76; RESP 16–18; TEMP 36.3–36.8; O2SAT 90–97
[2024-12-07 04:43] LABS: Basophils Percent Auto 0.4 % (0.2-1.2); Eosinophils Absolute Auto 0.1 K/mm3 (0-0.3); Eosinophils Percent Auto 4.2 % (0-4.4); Hematocrit 27.7 % (37.0-47.0); Hemoglobin 8.1 g/dL (12.0-15.0); Immature Granulocyte Absolute 0.01 K/mm3 (0.00-0.031); Immature Granulocyte Percent A 0.4 % (0-0.5); Lymphocytes Absolute Auto 1.21 K/mm3 (0.9-3.2); Mean Corpuscular HGB Conc 29.2 g/dl (32-36); Mean Corpuscular Hemoglobin 23.5 pg (26-34); Mean Corpuscular Volume 80.5 fl (80-100); Mean Platelet Volume 9.2 fl (7.4-10.4); Monocytes Absolute Auto 0.3 K/mm3 (0.1-0.6); Platelet Count Result 246 k/mm3 (150-375); Red Blood Count 3.44 M/mm3 (4.2-5.4); Red Cell Distribution Width 14.6 % (11.5-14.5); White Blood Count 2.6 K/mm3 (4.5-10.0)
[2024-12-07 04:56] LABS: Alanine Aminotransferase 16 U/L (6-35); Albumin Level 3.4 g/dL (3.5-5.1); Alkaline Phosphatase 61 U/L (38-126); Anion Gap 9 mmol/L (4-12); Aspartate Amino Transferase 20 U/L (14-36); Bilirubin,Total 0.3 mg/dL (0.2-1.3); Blood Urea Nitrogen 12 mg/dL (7-17); Calcium 8.7 mg/dL (8.4-10.2); Carbon Dioxide 25 mmol/L (22-30); Chloride 104 mmol/L (98-107); Estimated CRCL calculation 67 ml/min; Estimated Glomerular Filt Rate 56; Glucose 84 mg/dL (65-110); Sodium 138 mmol/L (137-145)
[2024-12-07 04:57] LABS: Hypochromasia 1+; Ovalocytes 1+; Platelet Estimate Adequate (Adequate); Schistocytes None Seen
[2024-12-07] MEDS: POLYSACCHARIDE IRON COMPLEX 150 MG CAPSULE PO (08:14)
[2024-12-07] MEDS: metFORMIN HCL 500 MG TABLET 1000 MG PO (08:14)
[2024-12-07] MEDS: ACETAMINOPHEN 325 MG TABLET 650 MG PO ×3 (08:14→17:52)
[2024-12-07] MEDS: buPROPion HCL XL (24 HR) 150 MG TABCR 300 MG PO (08:14)
[2024-12-07] MEDS: IRON SUCROSE COMPLEX 400 MG, IRON SUCROSE COMPLEX 100 MG in SODIUM CHLORIDE 0.9% IV 250 ML 78.57 MG IVPB (08:15)
[2024-12-07] MEDS: FLUTICASONE PROPIONATE 0.05% NA SPR 16 GM BTL (*BKC) 1 SPRAY NASAL ×2 (08:15→20:55)
--- NOTE | 2024-12-07 10:10 | PM.IMPN ---
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 Check orthostatic vitals Patient blood pressure is running slow on the lower side. Will add midodrine. Otherwise continue current treatment. (2) Pacemaker complications: Code(s): T82.9XXA - Unspecified complication of cardiac and vascular prosthetic device, implant and graft, initial encounter Status: Acute Assessment and Plan: Cardiology consulted Cardiology reviewed pacemaker interrogation of nonsustained V-tach and decided that it was 6 beats of SVT which patient has had past. patient interrogation was otherwise normal Orthostatic vital signs Anemia workup Echocardiogram pending Patient to follow up with her primary addiction social worker after hospital discharge (Dr. Lisa with [facility]). (3) Iron deficiency anemia: Code(s): D50.9 - Iron deficiency anemia, unspecified Status: Acute Assessment and Plan: Patient states she recently had blood work and her provider did not mention showed anemia IV iron followed by oral ferritin is low with low iron saturation Family history of hematologic malignancy in her sister. Also has leukopenia. Could be related to iron deficiency However consult Heme-Onc for further evaluation. Patient is receiving IV iron transfusion today (4) Cough: Code(s): R05.9 - Cough, unspecified Status: Acute Assessment and Plan: COVID, flu, RSV panel negative (5) Depression: Code(s): F32.A - Depression, unspecified Status: Acute Assessment and Plan: Continue home med (6) PCOS (polycystic ovarian syndrome): Code(s): E28.2 - Polycystic ovarian syndrome Status: Acute Assessment and Plan: stable, continue treatment. Plan Patient is receiving iron transfusion today. Schedule for abdominal ultrasound today. patient blood pressure is running low. Will start midodrine and monitor closely. Possible discharge in the morning Subjective Date/time seen: 12/07/24 10:10 Interval history: Patient was seen during the morning rounds today. Patient is still feeling weak. Patient denies any shortness of breath or chest pain. No abdominal pain, nausea, vomiting. Mood stable. Review of Systems Review of Systems: 12 systems were reviewed and are negative except for as per HPI. All systems reviewed & are unremarkable except as noted in HPI and below Exam Narrative: General: well appearing, appears stated age. HEENT: normocephalic, atraumatic. Mucous membranes moist. Respiratory: clear to ascultation bilaterally. No rales/rhonic/wheezes. Cardiovascular: Regular rate and rhythm, normal S1-S2 upon ascultation. No murmurs, rubs, or clicks. PMI is nondisplaced, capillary refill less than 3 second. Abdomen: Soft, round, no pulsatile masses, nondistended and nontender. Extremities: No cyanosis, clubbing, or edema present. Pulses are palpable 2/2. Active ROM to all four extremities. Neuro: Alert and orientated x 4. PERRLA. Cranial nerves 2-12 intact without focal deficit. Skin: Warm, dry, and intact, without rash, erythema, or lesion. Psych: pleasant, cooperative, normal speech, normal affect, no hallucinations, no dysarthia Objective Data Vital Signs Vital Signs: Vital Signs - 24 hr 12/06/24 11:22 12/06/24 12:00 12/06/24 15:53 Temperature 36.7 C 37.2 C Pulse Rate 67 77 72 Respiratory Rate 18 18 Blood Pressure 105/48 L 108/61 Pulse Oximetry 93 95 Oxygen Delivery 12/06/24 20:00 12/06/24 20:00 12/07/24 00:00 Temperature 37.0 C 36.6 C Pulse Rate 72 72 Respiratory Rate 16 16 Blood Pressure 109/66 Pulse Oximetry 94 94 Oxygen Delivery Room Air 12/07/24 04:00 12/07/24 08:00 12/07/24 08:30 Temperature 36.7 C 36.7 C Pulse Rate 67 76 Respiratory Rate 16 18 Blood Pressure 100/50 L 92/82 L Pulse Oximetry 93 97 Oxygen Delivery Intake/Output Intake/Output: Intake & Output 12/04/24 12/05/24 12/06/24 12/07/24 23:59 23:59 23:59 23:59 Intake Total 1470 720 590 Output Total 1001 1000 900 Balance 316 -280 -991 Meds/Results Medications: Active Medications Generic Name Dose Route Start Last Admin Trade Name Freq PRN Reason Stop Dose Admin Acetaminophen 650 mg 12/05/24 16:30 12/07/24 08:14 Acetaminophen 325 Mg Tablet PO 650 mg Q4H PRN Administration Mild Pain (1-3) or Fever Bupropion HCl 300 mg 12/06/24 09:00 12/07/24 08:14 Bupropion Hcl Xl (24 Hr) 150 Mg Tabcr PO 300 mg DAILY VELMA Administration Fluticasone Propionate 1 spray 12/06/24 09:00 12/07/24 08:15 Fluticasone Propionate 0.05% Na Spr 16 Gm Btl (*Bkc) NASAL 1 spray Q12HR VELMA Administration Iron Sucrose 400 mg/ Iron 275 mls @ 78.571 mls/hr 12/07/24 09:00 12/07/24 08:15 Sucrose 100 mg/ Sodium IVPB 12/07/24 12:29 78.57 mls/hr Chloride ONCE ONE Administration Metformin HCl 1,000 mg 12/06/24 09:00 12/07/24 08:14 Metformin Hcl 500 Mg Tablet PO 1,000 mg DAILY VELMA Administration Perflutren Lipid Microsphere 0 ml 12/05/24 16:14 Perflutren Lipid Microspheres 1.5 Ml Vial Diluted To 10 Ml Total Volume IV PUSH 12/08/24 16:14 ONCE PRN adequate visualization Protocol Senna/Docusate Sodium 1 tab 12/06/24 21:00 12/06/24 20:36 Senna/Docusate Sodium Tablet PO 1 tab HS VELMA Administration Radiology Results: ITS Impressions Chest X-Ray 12/05/24 10:19 IMPRESSION: 1. No acute cardiopulmonary disease. Labs Labs: Laboratory Results - last 24 hr 12/07/24 03:49 WBC 2.6 L RBC 3.44 L Hgb 8.1 L Hct 27.7 L MCV 80.5 MCH 23.5 L MCHC 29.2 L RDW 14.6 H Plt Count 246 MPV 9.2 Immature Gran % (Auto) 0.4 Neut % (Auto) 38.0 L Lymph % (Auto) 46.0 H Mccormick % (Auto) 11.0 H Eos % (Auto) 4.2 Baso % (Auto) 0.4 Lymph # (Auto) 1.21 Mccormick # (Auto) 0.3 Eos # (Auto) 0.1 Baso # (Auto) 0.0 Abs Immat Gran (auto) 0.01 Absolute Neuts (auto) 1.0 L Absolute Nucleated RBC 0.000 Nucleated RBC % 0.0 Platelet Estimate Adequate Hypochromasia 1+ Ovalocytes 1+ Schistocytes None seen Sodium 138 Potassium 4.0 Chloride 104 Carbon Dioxide 25 Anion Gap 9 BUN 12 Creatinine 1.01 H Estim Creat Clear Calc 67 Estimated GFR 56 L Glucose 84 Calcium 8.7 Magnesium 2.0 Total Bilirubin 0.3 AST 20 ALT 16 Alkaline Phosphatase 61 Total Protein 6.0 L Albumin 3.4 L Quality VTE Prophylaxis VTE prophylaxis: mechanical ordered
[2024-12-07 12:00] LABS: IFOB Positive Control Positive; Immunochemical Fecal Occult Bl Negative (N)
[2024-12-07] MEDS: MIDODRINE HCL 10 MG TABLET PO ×2 (13:09→17:52)
[2024-12-07] MEDS: SENNA/DOCUSATE SODIUM TABLET 1 TAB PO (20:55)
[2024-12-08] VITALS: BP 101/50; PULSE 61; PULSE 62; RESP 16; TEMP 36.7; O2SAT 95
[2024-12-08 04:00] VITALS: BP 111/49; PULSE 60; PULSE 69; RESP 16; TEMP 36.6; O2SAT 94
[2024-12-08 08:00] VITALS: BP 117/62; PULSE 62; RESP 16; TEMP 36.9; O2SAT 95
[2024-12-08] MEDS: metFORMIN HCL 500 MG TABLET 1000 MG PO (09:32)
[2024-12-08] MEDS: MIDODRINE HCL 10 MG TABLET PO ×3 (09:32→18:20)
[2024-12-08] MEDS: FLUTICASONE PROPIONATE 0.05% NA SPR 16 GM BTL (*BKC) 1 SPRAY NASAL ×2 (09:33→21:46)
[2024-12-08 12:00] VITALS: BP 117/70; PULSE 71; RESP 20; TEMP 37.1; O2SAT 98
[2024-12-08] MEDS: buPROPion HCL XL (24 HR) 150 MG TABCR 300 MG PO (12:06)
--- NOTE | 2024-12-08 12:45 | PM.IMPN ---
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 Check orthostatic vitals Patient blood pressure is running slow on the lower side. Will add midodrine. Otherwise continue current treatment. (2) Pacemaker complications: Code(s): T82.9XXA - Unspecified complication of cardiac and vascular prosthetic device, implant and graft, initial encounter Status: Acute Assessment and Plan: Cardiology consulted Cardiology reviewed pacemaker interrogation of nonsustained V-tach and decided that it was 6 beats of SVT which patient has had past. patient interrogation was otherwise normal Orthostatic vital signs Anemia workup Echocardiogram pending Patient to follow up with her primary dehydrogenation operator after hospital discharge (Dr. Lisa with [facility]). (3) Iron deficiency anemia: Code(s): D50.9 - Iron deficiency anemia, unspecified Status: Acute Assessment and Plan: Patient states she recently had blood work and her provider did not mention showed anemia IV iron followed by oral ferritin is low with low iron saturation Family history of hematologic malignancy in her sister. Also has leukopenia. Could be related to iron deficiency However consult Heme-Onc for further evaluation. Patient is receiving IV iron transfusion. (4) Cough: Code(s): R05.9 - Cough, unspecified Status: Acute Assessment and Plan: COVID, flu, RSV panel negative (5) Depression: Code(s): F32.A - Depression, unspecified Status: Acute Assessment and Plan: Continue home med (6) PCOS (polycystic ovarian syndrome): Code(s): E28.2 - Polycystic ovarian syndrome Status: Acute Assessment and Plan: stable, continue treatment. Plan Patient is receiving iron transfusion today. Schedule for abdominal ultrasound today. patient blood pressure is running low. Will start midodrine and monitor closely. Possible discharge in the morning Subjective Date/time seen: 12/08/24 12:45 Interval history: Patient was seen during the morning rounds today. No new overnight complaints. Patient is still feeling weak. Patient denies any shortness of breath or chest pain. No abdominal pain, nausea, vomiting. Mood stable. Review of Systems Review of Systems: 12 systems were reviewed and are negative except for as per HPI. All systems reviewed & are unremarkable except as noted in HPI and below Exam Narrative: General: well appearing, appears stated age. HEENT: normocephalic, atraumatic. Mucous membranes moist. Respiratory: clear to ascultation bilaterally. No rales/rhonic/wheezes. Cardiovascular: Regular rate and rhythm, normal S1-S2 upon ascultation. No murmurs, rubs, or clicks. PMI is nondisplaced, capillary refill less than 3 second. Abdomen: Soft, round, no pulsatile masses, nondistended and nontender. Extremities: No cyanosis, clubbing, or edema present. Pulses are palpable 2/2. Active ROM to all four extremities. Neuro: Alert and orientated x 4. PERRLA. Cranial nerves 2-12 intact without focal deficit. Skin: Warm, dry, and intact, without rash, erythema, or lesion. Psych: pleasant, cooperative, normal speech, normal affect, no hallucinations, no dysarthia Objective Data Vital Signs Vital Signs: Vital Signs - 24 hr 12/07/24 15:52 12/07/24 16:00 12/07/24 19:54 Temperature 36.3 C L 36.8 C Pulse Rate 68 69 62 Respiratory Rate 18 18 Blood Pressure 114/89 102/56 L Pulse Oximetry 96 90 Oxygen Delivery 12/07/24 20:00 12/07/24 20:50 12/08/24 00:00 Temperature 36.7 C Pulse Rate 62 62 Respiratory Rate 16 Blood Pressure 101/50 L Pulse Oximetry 95 Oxygen Delivery Room Air 12/08/24 00:00 12/08/24 04:00 12/08/24 04:00 Temperature 36.6 C Pulse Rate 61 60 69 Respiratory Rate 16 Blood Pressure 111/49 L Pulse Oximetry 94 Oxygen Delivery 12/08/24 08:00 12/08/24 08:00 12/08/24 08:00 Temperature 36.9 C Pulse Rate 62 62 62 Respiratory Rate 16 16 Blood Pressure 117/62 Pulse Oximetry 95 95 Oxygen Delivery Room Air 12/08/24 12:00 12/08/24 12:00 Temperature 37.1 C Pulse Rate 71 71 Respiratory Rate 20 Blood Pressure 117/70 Pulse Oximetry 98 Oxygen Delivery Intake/Output Intake/Output: Intake & Output 02/12/25 02/13/25 02/14/25 02/15/25 23:59 23:59 23:59 23:59 Intake Total 6133 276 5626 650 Output Total 1001 1000 1600 Balance 555 -707 -615 978 Meds/Results Medications: Active Medications Generic Name Dose Route Start Last Admin Trade Name Freq PRN Reason Stop Dose Admin Acetaminophen 650 mg 12/05/24 16:30 12/07/24 17:52 Acetaminophen 325 Mg Tablet PO 650 mg Q4H PRN Administration Mild Pain (1-3) or Fever Bupropion HCl 300 mg 12/06/24 09:00 12/08/24 12:06 Bupropion Hcl Xl (24 Hr) 150 Mg Tabcr PO 300 mg DAILY VELMA Administration Fluticasone Propionate 1 spray 12/06/24 09:00 12/08/24 09:33 Fluticasone Propionate 0.05% Na Spr 16 Gm Btl (*Bkc) NASAL 1 spray Q12HR VELMA Administration Metformin HCl 1,000 mg 12/06/24 09:00 12/08/24 09:32 Metformin Hcl 500 Mg Tablet PO 1,000 mg DAILY VELMA Administration Midodrine 10 mg 12/07/24 13:00 12/08/24 12:07 Midodrine Hcl 10 Mg Tablet PO 10 mg TID VELMA Administration Perflutren Lipid Microsphere 0 ml 12/05/24 16:14 Perflutren Lipid Microspheres 1.5 Ml Vial Diluted To 10 Ml Total Volume IV PUSH 12/08/24 16:14 ONCE PRN adequate visualization Protocol Senna/Docusate Sodium 1 tab 12/06/24 21:00 12/07/24 20:55 Senna/Docusate Sodium Tablet PO 1 tab HS VELMA Administration Radiology Results: ITS Impressions Chest X-Ray 12/05/24 10:19 IMPRESSION: 1. No acute cardiopulmonary disease. Abdomen Ultrasound 12/07/24 15:54 IMPRESSION: Evaluation of the pancreas is limited by overlying bowel gas. No splenomegaly. Otherwise, unremarkable sonographic evaluation of the abdomen, as detailed above. Quality VTE Prophylaxis VTE prophylaxis: mechanical ordered
[2024-12-08 16:00] VITALS: BP 124/68; PULSE 62; PULSE 71; RESP 16; TEMP 36.9; O2SAT 97
[2024-12-08 20:00] VITALS: BP 106/54; PULSE 64; PULSE 66; RESP 16; TEMP 36.6; O2SAT 92
[2024-12-08] MEDS: SENNA/DOCUSATE SODIUM TABLET 1 TAB PO (21:45)
[2024-12-09] VITALS: BP 111/63; PULSE 61; RESP 16; TEMP 36.5; O2SAT 93
--- NOTE | 2024-12-09 00:03 | PC.NURSE ---
This patient, Janie Griffin, was transferred to [facility] on 12/09/24 at 0003. Personal belongings sent with patient. Report given to Jordana via telephone. Appropriate documentation sent with patient.
[2024-12-09 03:25] VITALS: BP 112/66; PULSE 62; RESP 18; TEMP 36.6; O2SAT 94
[2024-12-09 04:00] VITALS: PULSE 62
[2024-12-09 08:00] VITALS: BP 110/62; PULSE 62; RESP 18; TEMP 37.2; O2SAT 91
--- NOTE | 2024-12-09 08:55 | PM.DS ---
DS: Admitting Diagnosis Discharge Date 12/09/2024 Admitting Diagnosis Near syncope DS: Discharge Diagnosis Discharge Diagnosis (1) Near syncope: Code(s): R55 - Syncope and collapse Status: Acute Assessment and Plan: Syncopal workup night monitor Orthostatic vital signs Echocardiogram pending Pacemaker interrogation with no significant arrhythmias. Check orthostatic vitals Patient blood pressure is running slow on the lower side. Will add midodrine. Otherwise continue current treatment. (2) Pacemaker complications: Code(s): T82.9XXA - Unspecified complication of cardiac and vascular prosthetic device, implant and graft, initial encounter Status: Acute Assessment and Plan: Cardiology consulted Cardiology reviewed pacemaker interrogation of nonsustained V-tach and decided that it was 6 beats of SVT which patient has had past. 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 Lisa with [facility]). (3) Iron deficiency anemia: Code(s): D50.9 - Iron deficiency anemia, unspecified Status: Acute Assessment and Plan: Patient states she recently had blood work and her provider did not mention showed anemia IV iron followed by oral ferritin is low with low iron saturation Family history of hematologic malignancy in her sister. Also has leukopenia. Could be related to iron deficiency However consult Heme-Onc for further evaluation. Patient is receiving IV iron transfusion. (4) Cough: Code(s): R05.9 - Cough, unspecified Status: Acute Assessment and Plan: COVID, flu, RSV panel negative (5) Depression: Code(s): F32.A - Depression, unspecified Status: Acute Assessment and Plan: Continue home med (6) PCOS (polycystic ovarian syndrome): Code(s): E28.2 - Polycystic ovarian syndrome Status: Acute Assessment and Plan: stable, continue treatment. Plan Patient is receiving iron transfusion today. Schedule for abdominal ultrasound today. patient blood pressure is running low. Will start midodrine and monitor closely. Possible discharge in the morning DS: Summary Hospital Course Reason for hospitalization: Near syncope Hospital Course: 59 years old female was admitted for near syncopal episode. Patient was found to have iron deficiency anemia. Patient was given Iron infusion. Patient hemoglobin remained stable during the stay in the hospital. Today patient is feeling better and was discharged in stable condition. follow-up with primary care physician and oncology scheduled. Status at Discharge Cognitive/behavioral status at discharge: Stable Time Spent with Patient Time attestation: Total time spent providing and/or coordinating discharge services: 30 minutes Exam Narrative: General: well appearing, appears stated age. HEENT: normocephalic, atraumatic. Mucous membranes moist. Respiratory: clear to ascultation bilaterally. No rales/rhonic/wheezes. Cardiovascular: Regular rate and rhythm, normal S1-S2 upon ascultation. No murmurs, rubs, or clicks. PMI is nondisplaced, capillary refill less than 3 second. Abdomen: Soft, round, no pulsatile masses, nondistended and nontender. Extremities: No cyanosis, clubbing, or edema present. Pulses are palpable 2/2. Active ROM to all four extremities. Neuro: Alert and orientated x 4. PERRLA. Cranial nerves 2-12 intact without focal deficit. Skin: Warm, dry, and intact, without rash, erythema, or lesion. Psych: pleasant, cooperative, normal speech, normal affect, no hallucinations, no dysarthia DS: Data Data Completed and Pending Pending studies at discharge: Pending at discharge 12/06/24 18:50 Surgical [PTH] Routine Discharge Plan Discharge Attending physician on discharge: Luiz Hernandez Consulting providers: Antonio Hastings; Jonny Lane Discharging Clinician: Luiz Hernandez Activity: as tolerated Diet: as tolerated and diabetic Patient Language: Ukrainian Follow-up/Referrals: [facility] [Provider Group] Jonny Laen MD [Physician] - Antonio Hastings MD [Physician] - Discharge Medications: New midodrine 10 mg Tablet 10 mg PO TID Qty: 90 0RF Continued bupropion HCl 300 mg tablet extended release 24 hr 300 mg PO DAILY metformin 1,000 mg tablet 1,000 mg PO DAILY Date of admission: 12/05/24 13:48 Primary Care Provider: UNKNOWN,DOCTOR Admitting Provider: Marie Wesley Attending physician on admission: Marie Wesley Condition: Stable Quality VTE Prophylaxis VTE prophylaxis: mechanical ordered
[2024-12-09] MEDS: buPROPion HCL XL (24 HR) 150 MG TABCR 300 MG PO (10:30)
[2024-12-09] MEDS: FLUTICASONE PROPIONATE 0.05% NA SPR 16 GM BTL (*BKC) 1 SPRAY NASAL (10:30)
[2024-12-09] MEDS: metFORMIN HCL 500 MG TABLET 1000 MG PO (10:30)
[2024-12-09] MEDS: MIDODRINE HCL 10 MG TABLET PO (10:30)
== END 2024-12-09 12:00 | disposition home or self-care (01) ==
LOC: ANHED 13:46 → ANHIMU 12-06 10:25 → ANH3MEDSUR 12-09 08:53 → ANHIMU 12-10 12:32
PROVIDERS: Internal Medicine; Internal Medicine Hematology & Oncology; Nurse Practitioner Gerontology; Admitting Provider Hospitalist; Emergency Provider Emergency Medicine; Visit Provider Internal Medicine
DX: R55 Syncope and collapse (principal); D50.9 Iron deficiency anemia, unspecified; D61.818 Other pancytopenia; I47.10 Supraventricular tachycardia, unspecified; E11.9 Type 2 diabetes mellitus without complications; E28.2 Polycystic ovarian syndrome; F32.A Depression, unspecified; R05.9 Cough, unspecified; Z95.0 Presence of cardiac pacemaker; Z20.822 Contact with and (suspected) exposure to COVID-19; Z79.84 Long term (current) use of oral hypoglycemic drugs
CPT/HCPCS: 36415; 71045; 76700; 80048; 80053; 81003; 82274; 82607; 82728; 82746; 83540; 83550; 83615; 83735; 83880; 84100; 84439; 84443; 84466; 84484; 85025; 85046; 85610; 85730; 86038; 86039; 86850; 86900; 86901; 87637; 88184; 93005; 93306; 96361; 96365; 96366; 96375; 99285; A9270; G0378; J1756; J7030; J7050